=== PATIENT | female | born 1975 | race Caucasian/White ===

== ENCOUNTER 2019-07-08 17:20 | Emergency (ER) | payer OTHER, SELFPAY ==
--- NOTE | ~2019-07-08 | CT_ITS ---
EXAMINATION: CT abdomen pelvis w con DATE: 07/08/2019 19:49 INDICATION: Right lower quadrant abdominal pain. TECHNIQUE: Computed tomography (CT) of the abdomen and pelvis was performed with 100 mL Omnipaque 350 intravenous contrast. Automated exposure control and iterative reconstruction technique were employe d. The dose-length product was 647.53 mGy-cm. COMPARISON: CT abdomen and pelvis 02/01/2017 FINDINGS: The visualized portions of the lung bases demonstrate mild atelectasis. No pleural effusion . The heart size is normal. No pericardial effusion. There is mild pectus excavatum. The liver, gallb ladder, and pancreas are normal. There is a 6 mm cyst in the spleen. The adrenal glands and right kid andrés are normal. There is a 9 mm cyst in left kidney. There is a 2 mm stone in left kidney. There are no dilated loops of bowel. The appendix is normal. There are no pathologically enlarged lymph nodes. There is no free intraperitoneal fluid. There is mild thoracolumbar spondylosis. IMPRESSION: 1. No etiology for the patient's symptoms. Reviewed, dictated and finalized at location A.
[2019-07-08 17:28] VITALS: BP 105/65; PULSE 88; RESP 18; TEMP 37.1; O2SAT 97
[2019-07-08 18:45] LABS: Basophils Absolute Auto 0.1 K/mm3 (0.0-0.1); Basophils Percent Auto 0.4 % (0.2-1.2); Eosinophils Absolute Auto 0.2 K/mm3 (0-0.3); Eosinophils Percent Auto 1.5 % (0-4.4); Hematocrit 45.4 % (37.0-47.0); Hemoglobin 15.9 g/dL (12.0-15.0); Immature Granulocyte Absolute 0.05 K/mm3 (0.00-0.031); Immature Granulocyte Percent A 0.4 % (0-0.5); Lymphocytes Absolute Auto 2.85 K/mm3 (0.9-3.2); Lymphocytes Percent Auto 23.8 % (18.3-44.2); Mean Corpuscular Hemoglobin 31.7 pg (26-34); Mean Corpuscular Volume 90.4 fl (80-100); Mean Platelet Volume 9.9 fl (7.4-10.4); Monocytes Absolute Auto 0.8 K/mm3 (0.1-0.6); Monocytes Percent Auto 6.8 % (2.6-8.5); Neutrophils Percent Auto 67.1 % (45.5-73.1); Platelet Count Result 345 k/mm3 (150-375); Red Blood Count 5.02 M/mm3 (4.2-5.4); Red Cell Distribution Width 12.7 % (11.5-14.5)
[2019-07-08 18:57] LABS: Alanine Aminotransferase 70 U/L (4-35); Albumin Level 4.7 g/dL (3.5-5.1); Alkaline Phosphatase 89 U/L (38-126); Aspartate Amino Transferase 48 U/L (14-36); Bilirubin,Total 0.4 mg/dL (0.2-1.3); Blood Urea Nitrogen 11 mg/dL (7-17); Calcium 9.9 mg/dL (8.4-10.2); Carbon Dioxide 29 mmol/L (22-30); Chloride 103 mmol/L (98-107); Estimated CRCL calculation 98 ml/min; Estimated Glomerular Filt Rate > 60; Glucose 117 mg/dL (65-105); Lipase 97 U/L (23-300); Sodium 138 mmol/L (137-145)
[2019-07-08 19:15] LABS: Add Urine Microscopic? NO; Appearance Urine Clear (Clear); Bilirubin Urine Negative (Negative); Blood Urine Negative (Negative); Color Urine Yellow (Yellow); Glucose Urine UA Negative (Negative); Ketones Urine Negative (Negative); Leukocyte Esterase Ur Negative LEU/UL (Negative); Nitrate Urine Negative (Negative); Protein Urine Negative (Negative); Specific Grav Ur 1.012 (1.001-1.035); Urobilinogen Urine Negative mg/dL (<2.0)
[2019-07-08] MEDS: MORPHINE SULFATE 4 MG/ML INJ IV PUSH (19:26)
[2019-07-08] MEDS: ONDANSETRON INJ 4 MG/2 ML VIAL IV PUSH (19:27)
[2019-07-08] MEDS: SODIUM CHLORIDE 0.9% IV 500 ML 999 ML IV CONT (19:27)
--- NOTE | 2019-07-08 20:57 | ED.GENADULT ---
HPI - General Adult General Chief complaint: Unspecified Stated complaint: abd/ back pain Time Seen by Provider: 07/08/19 18:52 Source: patient Mode of arrival: ambulatory Limitations: no limitations History of Present Illness HPI narrative: Patient presents to the ER for right sided flank pain since this morning. Reports she started having some pain in the right side of her lower abdomen. Reports that resolved and patient then started having some pain in the right side of her mid back. Reports the pain has been constant and is worse with movement and deep breathing. No known injuries. Denies fever, chest pain, shortness of breath, nausea, vomiting, dysuria or hematuria. Related Data Home Medications Medication Instructions Recorded Confirmed estradiol 1 patch TRANSDERMAL 2XW 07/08/19 Allergies Allergy/AdvReac Type Severity Reaction Status Date / Time SERTRALINE HCL Allergy Unknown Unknown Uncoded 07/08/19 17:28 Review of Systems Review of Systems: Narrative: CONSTITUTIONAL: Denies fever CARDIOVASCULAR: Denies chest pain RESPIRATORY: Denies dyspnea. GASTROINTESTINAL: Reports abdominal pain. Denies nausea, vomiting, or diarrhea. GENITOURINARY: Denies dysuria or hematuria. MUSCULOSKELETAL: Reports back pain, and myalgia. NEUROLOGIC: Denies numbness, or weakness. All systems reviewed & are unremarkable except as noted in HPI and below PMFSH Past Medical History Medical History (Updated 07/08/19 @ 21:10 by Nhung Farnsworth PA-C) History of migraine Surgical History Surgical History (Updated 07/08/19 @ 21:05 by Nhung Farnsworth PA-C) History of hysterectomy Social History Social History Gender identity (if verbalized by the patient): Female Exam Narrative: Exam Narrative: GENERAL: Well-appearing, well-nourished, and in no acute distress. HEAD: Normocephalic, atraumatic. EYES: EOMI. CHEST: Clear to auscultation. No respiratory distress. No wheezes rales or rhonchi HEART: Regular rate and rhythm. No murmur heard. Normal peripheral pulses. ABDOMEN: Soft, nondistended, normal active bowel sounds. Mild tenderness to palpation in the RLQ, without guarding. BACK: Tender to palpation of the right thoracic paraspinal musculature EXTREMITIES: Normal range of motion. No edema. SKIN: Warm, dry, no rash. NEURO: No focal deficits. Alert and oriented x3. PSYCH: Normal mood and affect Course Vital Signs Vital signs: Vital Signs Temperature 98.8 F 07/08/19 17:28 Pulse Rate 88 07/08/19 17:28 Respiratory Rate 18 07/08/19 17:28 Blood Pressure 105/65 07/08/19 17:28 Pulse Oximetry 97 07/08/19 17:28 Temperature 98.8 F 07/08/19 17:28 Pulse Rate 88 07/08/19 17:28 Respiratory Rate 18 07/08/19 17:28 Blood Pressure 105/65 07/08/19 17:28 Pulse Oximetry 97 07/08/19 17:28 Medical Decision Making MDM Narrative Medical decision making narrative: Patient presents to the emergency department for right-sided abdominal pain and right-sided back pain. She is afebrile and nontoxic-appearing. No known injuries or trauma. Vitals are normal. CBC with mild leukocytosis to 12. Also shows hemoconcentration. Metabolic panel with mild transaminitis, otherwise no acute changes. UA is normal. CT abdomen pelvis is without acute abnormalities. Patient was updated on case findings. Suspect back pain is more musculoskeletal in origin. Reviewing old records patient has been here multiple times for abdominal pain which seems to be chronic in nature. Patient is stable and felt appropriate for further outpatient evaluation. She is to follow-up with her primary care doctor. She was given warnings to return to the ER Vital Signs Vital Signs: Vital Signs Temperature 98.8 F 07/08/19 17:28 Pulse Rate 88 07/08/19 17:28 Respiratory Rate 18 07/08/19 17:28 Blood Pressure 105/65 07/08/19 17:28 Pulse Oximetry 97 07/08/19 17:28 Temperature 98.8 F 07/08/19 17:28 Pulse Rate 88 02
== END 2019-07-08 21:14 | disposition home or self-care (01) ==
PROVIDERS: General Practice; Emergency Provider Emergency Medicine; PCP Internal Medicine Geriatric Medicine
DX: R10.9 Unspecified abdominal pain (principal); M54.6 Pain in thoracic spine
CPT/HCPCS: 36415; 74177; 80053; 81003; 83690; 85025; 96374; 96375; 99284; J0131; J2270; J2405; J7040; Q9967

== ENCOUNTER 2022-01-24 11:24 | Emergency (ER) | payer OTHER, SELFPAY ==
--- NOTE | ~2022-01-24 | XR_ITS ---
EXAMINATION: XR knee RT min 4V DATE: 01/24/2022 12:18 INDICATION: Anterior right knee pain and swelling post fall TECHNIQUE: Anteroposterior, 2 oblique and crosstable lateral views of the right knee were obtained COMPARISON: None. FINDINGS: Alignment is normal. No fracture. No joint effusion/layering lipohemarthrosis. Mild prepatellar soft tissue swelling. IMPRESSION: 1. No right knee joint effusion or osseous abnormality. Reviewed, dictated and finalized at location A. [facility]
[2022-01-24 11:27] VITALS: BP 114/65; PULSE 68; RESP 16; TEMP 36.8; O2SAT 98
--- NOTE | 2022-01-24 12:41 | ED.GENADULT ---
HPI - General Adult General Chief complaint: Extremity Injury, Lower Stated complaint: fall/knee injury Time Seen by Provider: 01/24/22 11:54 History of Present Illness HPI narrative: 46-year-old female presenting to the emergency department for evaluation of right knee pain. Patient states she was at work when she fell landed on both knees. Patient does have an abrasion to her left knee but is complaining of increased pain at her right knee. Pain states the pain is constant but is also worse with ambulation. Patient denies any other pain or injury. Related Data Home Medications Medication Instructions Recorded Confirmed estradiol 0.1 mg/24 hr semiweekly 1 patch transdermal 2XW 07/08/19 transdermal patch Allergies Allergy/AdvReac Type Severity Reaction Status Date / Time SERTRALINE HCL Allergy Unknown Unknown Uncoded 01/24/22 11:28 Review of Systems Review of Systems: CONSTITUTIONAL: Denies fever, chills, or sweats. EYES: Denies visual changes, redness, or discharge. ENT: Denies rhinorrhea, congestion, sore throat, or otalgia. CARDIOVASCULAR: Denies chest pain, palpitations, or edema. RESPIRATORY: Denies cough or dyspnea. GASTROINTESTINAL: Denies abdominal pain, nausea, vomiting, or diarrhea. GENITOURINARY: Denies dysuria or hematuria. SKIN: Denies rash or itching. MUSCULOSKELETAL: See HPI NEUROLOGIC: Denies headache, numbness, or weakness. [facility] Past Medical History Medical History (Updated 01/24/22 @ 13:04 by Gerber Herrera MD) History of migraine Surgical History Surgical History (Updated 07/08/19 @ 21:05 by Nhung Farnsworth PA-C) History of hysterectomy Social History Social History Gender identity (if verbalized by the patient): Female Exam Narrative: APPEARANCE: Well appearing, no pain, no distress, well-nourished. HEAD: normocephalic, atraumatic. EYES: PERRLA/EOMI, conjunctivae clear. NOSE: Normal no drainage NECK: Supple. No adenopathy, no masses. RESPIRATORY: Airway patent, respirations nonlabored. Clear to auscultation bilaterally, no rales, rhonchi, wheezing. CARDIOVASCULAR: Regular rate and rhythm without murmurs rubs or gallops. ABDOMINAL: Soft, nontender, nondistended, normal bowel sounds MUSCULOSKELETAL: Moves all extremities. Ecchymosis and edema on the right lateral aspect of the right knee. Patient does have some right-sided tenderness to palpation. Strong flexion and extension of the lower leg. NEURO: Alert. Cranial nerves II through XII intact. Grossly intact SKIN: Warm, dry. Normal Color Course Course Emergency Course: Patient's knee has no acute fracture or dislocation. X-rays were negative. Patient was placed in a knee immobilizer and offered crutches for limited weightbearing. Patient was encouraged of close follow-up with her primary care physician. All question concerns were addressed. Vital Signs Vital signs: Vital Signs Temperature 98.2 F 01/24/22 11:27 Pulse Rate 68 01/24/22 11:27 Respiratory Rate 16 01/24/22 11:27 Blood Pressure 114/65 01/24/22 11:27 Pulse Oximetry 98 01/24/22 11:27 Temperature 98.2 F 01/24/22 11:27 Pulse Rate 68 01/24/22 11:27 Respiratory Rate 16 01/24/22 11:27 Blood Pressure 114/65 01/24/22 11:27 Pulse Oximetry 98 01/24/22 11:27 Medical Decision Making Vital Signs Vital Signs: Vital Signs Temperature 98.2 F 01/24/22 11:27 Pulse Rate 68 01/24/22 11:27 Respiratory Rate 16 01/24/22 11:27 Blood Pressure 114/65 01/24/22 11:27 Pulse Oximetry 98 01/24/22 11:27 Temperature 98.2 F 01/24/22 11:27 Pulse Rate 68 01/24/22 11:27 Respiratory Rate 16 01/24/22 11:27 Blood Pressure 114/65 01/24/22 11:27 Pulse Oximetry 98 01/24/22 11:27 Imaging Data Radiologist's impression: Impressions Knee X-Ray 01/24/22 12:51 IMPRESSION: 1. No right knee joint effusion or osseous abnormality. Discharge Plan Discharge Clinical Impression
== END 2022-01-24 14:04 | disposition home or self-care (01) ==
PROVIDERS: Emergency Provider Emergency Medicine; PCP Internal Medicine Geriatric Medicine
DX: S80.01XA Contusion of right knee, initial encounter (principal); Z90.710 Acquired absence of both cervix and uterus; W19.XXXA Unspecified fall, initial encounter
CPT/HCPCS: 73564; 99283

== ENCOUNTER 2022-06-19 13:53 | Emergency (ER) | payer OTHER, SELFPAY ==
--- NOTE | 2022-06-19 13:59 | ED.WOUNDLAC ---
HPI - Wound/Laceration General Chief Complaint: Wound/Laceration Stated Complaint: PW L FOOT Time Seen by Provider: 06/19/22 14:00 Source: patient, RN notes reviewed and old records reviewed Mode of arrival: ambulatory Limitations: no limitations History of Present Illness HPI narrative: patient presents to with a puncture wound to the left dorsal foot that occurred about 3 days ago. Since noticed some redness and swelling and needing her tetanus shot updated. States that she got a nail in the dorsal foot. Onset (ago): day(s) (3) Patient tetanus UTD: No Related Data Home Medications Medication Instructions Recorded Confirmed estradiol 0.1 mg/24 hr semiweekly 1 patch transdermal 2XW 07/08/19 06/19/22 transdermal patch Allergies Allergy/AdvReac Type Severity Reaction Status Date / Time SERTRALINE HCL Allergy Unknown Unknown Uncoded 06/19/22 14:07 Review of Systems Review of Systems: All systems reviewed & are unremarkable except as noted in HPI and below Constitutional: Constitutional: Reports no additional constitutional complaints Eyes: Eyes: Reports no additional eye complaints ENT: Reports system reviewed and no additional complaints, except as documented Cardiovascular: Cardiovascular: Reports no additional cardiovascular complaints, Denies chest pain and Denies dyspnea Respiratory: Respiratory: Reports no additional respiratory complaints, Denies chest congestion, Denies cough and Denies dyspnea Gastrointestinal: Gastrointestinal: Reports no additional gastrointestinal complaints, Denies abdominal pain, Denies nausea and Denies vomiting Musculoskeletal: Musculoskeletal: Reports as per HPI Integumentary/Breasts: Skin/Breast: Reports as per HPI Neurologic: Reports system reviewed and no additional complaints, except as documented Psychiatric: Psychiatric: Reports no additional psychiatric complaints Allergic/Immunologic: Allergic/Immunologic: Reports no additional allergic/immunologic complaints [facility] Past Medical History Medical History History of migraine Surgical History Surgical History History of hysterectomy Social History Social History Gender identity (if verbalized by the patient): Female Comments At the time of my signature, I reviewed and agree with the nursing past medical, surgical, social, and family history. There is no relevant family history pertinent to the patient complaint. Exam Const: General: cooperative, healthy appearing, comfortable, no acute distress, well developed, alert and well nourished Nutritional Appearance: well nourished Orientation/consciousness: patient oriented x3 Limitations: no limitations HENMT: Head: normal to inspection Ears: hearing grossly normal bilaterally and external ears normal Face/Nose/Sinus: Normal external nose present, Normal nares present, Normal nasal mucous membranes and turbinates present and normal facial exam Face and sinus: normal facial exam Eyes: General: appearance normal, both eyes and all related structures Alignment and Position: alignment normal Periorbital: periorbital findings normal Conjunctivae: conjunctivae normal Pupils: Equal, round and reactive pupils present EOM: EOMs intact bilaterally Neck: Neck: normal visual inspection, full ROM, no lymphadenopathy and no meningeal signs Chest: Chest palpation & inspection: normal inspection of the chest Resp: Effort & Inspection: normal respiratory effort and able to speak in complete sentences Auscultation: clear to auscultation bilaterally, no crackles, no rales, no rhonchi and no wheezes Cardio: Rate: regular rate Rhythm: regular rhythm Back/Spine/Pelvis: Cervical Spine: cervical ROM normal Thoracic/Lumbar Spine: No thoracic spinal tenderness Skin: General skin exam: normal color and no rash
[2022-06-19 14:13] VITALS: BP 141/79; PULSE 67; RESP 16; TEMP 36.9; O2SAT 99
[2022-06-19] MEDS: TETANUS,DIPHTHERIA,AC PERTUSSIS ADULT (0.5 ML) BOOSTRIX IM (14:21)
== END 2022-06-19 14:40 | disposition home or self-care (01) ==
PROVIDERS: Emergency Provider Nurse Practitioner; PCP Internal Medicine Geriatric Medicine
DX: S91.332A Puncture wound without foreign body, left foot, initial encounter (principal); Z23 Encounter for immunization; W45.8XXA Other foreign body or object entering through skin, initial encounter
CPT/HCPCS: 90471; 90715; 99213; G0463

== ENCOUNTER 2023-09-23 10:00 | Emergency (ER) | payer BC, SELFPAY ==
[2023-09-23 10:10] VITALS: BP 109/62; PULSE 74; RESP 16; O2SAT 100
--- NOTE | 2023-09-23 10:16 | ED.URI ---
HPI - URI/Sore Throat General Stated Complaint: Sore Throat Time Seen by Provider: 09/23/23 10:17 Source: patient Mode of arrival: ambulatory Limitations: no limitations History of Present Illness HPI Narrative: Bibi is a 47-year-old female patient presenting to the clinic today with complaints of sore throat and difficulty swallowing x 2 days. She reports she received her first psoriasis injection four days ago and went to the dentist to have a routine cleaning three days ago. She has not been prescribed any antibiotics recently. She denies associated shortness of breath, chest pain, fevers/chills, or cough. MD elicited complaint: sore throat and nasal congestion Related Data Home Medications Medication Instructions Recorded Confirmed estradiol 0.1 mg/24 hr semiweekly 1 patch transdermal 2XW 07/08/19 06/19/22 transdermal patch Allergies Allergy/AdvReac Type Severity Reaction Status Date / Time SERTRALINE HCL Allergy Unknown Unknown Uncoded 06/19/22 14:07 Review of Systems Review of Systems: Pertinent positives per HPI. Patient denies any fever, chills, rash, headache, visual changes, dizziness, cough, runny nose, shortness of breath, chest pain, palpitations, nausea, vomiting, diarrhea, constipation, abdominal pain, or any urinary issues. PMFSH Past Medical History Medical History History of migraine Surgical History Surgical History History of hysterectomy Social History Social History Gender identity (if verbalized by the patient): Female Comments At the time of my signature, I reviewed and agree with the nursing past medical, surgical, social, and family history. There is no relevant family history pertinent to the patient complaint. Exam Narrative: General: Well-developed, well nourished, in no apparent distress Head: Normocephalic, atraumatic Eyes: Pupils equally round, EOM intact, sclera and conjunctive clear, no discharge, lids normal Ears: Hearing normal. Nose: Nares patent Mouth: Oral pharynx erythematous with lesions, good dentition, MMM. Neck: Supple, trachea midline Cardio: Regular rate and rhythm, s1 and s2 normal, no murmur appreciated. Resp: Clear to auscultation bilaterally, no rhonchi, rales, wheezing or rubs Course Course Emergency Course: Portions of this record may have been created with voice recognition software. Level of Care: Express Care Visit Vital Signs Vital signs: Vital signs reviewed MDM - URI/Sore Throat MDM Narrative Medical decision making narrative: At the time of visit patient is resting comfortably on the exam table. Patient appears to be nontoxic. Plan: I suspect patient has oral thrush. Prescription for nystatin swish and swallow and viscous lidocaine was sent to the pharmacy. Supportive measures were discussed with the patient and they voiced understanding discharge instructions and agrees to treatment plan. Return precautions reviewed Differential Diagnosis Differential diagnosis: Likely upper respiratory infection, sinusitis, viral infection, influenza (COVID, oral thrush), pharyngitis and other (COVID) Discharge Plan Discharge Clinical Impression: Oral thrush Patient Disposition: Home, Self-Care Condition: Stable Instructions: Antibiotic Form, Oral Candidiasis (ED) Additional Instructions: Take viscous lidocaine and nystatin swish and swallow as directed Increase fluids and stay well hydrated May take Tylenol/Motrin as needed for pain If you develop dehydration/difficulty swallowing recommend going to the emergency room for further evaluation Follow-up with your primary care provider in 3-5 days if symptoms persist Prescriptions: New nystatin 100,000 unit/mL suspension 5 ml PO QID 14 Days Qty: 280 0RF Rx Instructions
== END 2023-09-23 10:37 | disposition home or self-care (01) ==
PROVIDERS: Emergency Provider Nurse Practitioner Family
DX: B37.0 Candidal stomatitis (principal)
CPT/HCPCS: 99213; G0463

== ENCOUNTER 2023-09-24 20:10 | Emergency (ER) | payer BC, SELFPAY ==
[2023-09-24 20:22] VITALS: BP 134/77; PULSE 61; RESP 20; TEMP 36.5; O2SAT 100
--- NOTE | 2023-09-24 22:49 | ED.DENTAL ---
HPI - Dental/Oral General Chief complaint: Dental/Oral Stated complaint: thrush, sob Time Seen by Provider: 09/24/23 21:56 Source: patient Mode of arrival: ambulatory Limitations: no limitations History of Present Illness HPI Narrative: This is a 47 year old female that presents to the ER for sore throat. Reports she was diagnosed with thrush 2 days ago. Started on Nystatin. She is not tolerating the Nystatin. It is making her vomit. She has worsening pain. Reports recently being started on a new Psoriasis injection. Denies fevers. Related Data Home Medications Medication Instructions Recorded Confirmed estradiol 0.1 mg/24 hr semiweekly 1 patch transdermal 2XW 07/08/19 09/23/23 transdermal patch Allergies Allergy/AdvReac Type Severity Reaction Status Date / Time SERTRALINE HCL Allergy Unknown Unknown Uncoded 09/23/23 12:27 Review of Systems Review of Systems: CONSTITUTIONAL: Denies fever ENT: Reports sore throat All systems reviewed & are unremarkable except as noted in HPI and below PMFSH Past Medical History Medical History (Updated 09/24/23 @ 22:54 by Nhung Farnsworth PA-C) History of migraine History of psoriasis Surgical History Surgical History History of hysterectomy Social History Social History (Updated 09/24/23 @ 22:54 by Nhung Farnsworth PA-C) Substance use: never Gender identity (if verbalized by the patient): Female Exam Narrative: GENERAL: Well-appearing, well-nourished, and in no acute distress. HEAD: Normocephalic, atraumatic. EYES: EOMI. ENT: Mucous membranes moist. Oropharynx with erythema with exudates present NECK: Supple. CHEST: Clear to auscultation. No respiratory distress. No wheezes rales or rhonchi HEART: Regular rate and rhythm. No murmur heard. Normal peripheral pulses. EXTREMITIES: Normal range of motion. No edema. SKIN: Warm, dry, no rash. NEURO: No focal deficits. Alert and oriented x3. PSYCH: Normal mood and affect Course Course Emergency Course: Patient agrees with plan of care Vital Signs Vital signs: Vital Signs Temperature 97.7 F 09/24/23 20:22 Pulse Rate 61 09/24/23 20:22 Respiratory Rate 20 09/24/23 20:22 Blood Pressure 134/77 09/24/23 20:22 Pulse Oximetry 100 09/24/23 20:22 Oxygen Delivery Room Air 09/24/23 20:22 Temperature 97.7 F 09/24/23 20:22 Pulse Rate 61 09/24/23 20:22 Respiratory Rate 20 09/24/23 20:22 Blood Pressure 134/77 09/24/23 20:22 Pulse Oximetry 100 09/24/23 20:22 Oxygen Delivery Room Air 09/24/23 20:22 MDM - Dental/Oral MDM Narrative Medical decision making narrative: Patient presents to the emergency department for worsening symptoms after recently being diagnosed with thrush. She is not tolerating Nystatin. Will change her to Fluconazole. She was instructed to have follow up with PCP. She was given warnings to return to the ER Differential Diagnosis Differential diagnosis: Likely other (thrush, pharyngitis) Critical Care Time Critical Care Time Critical Care Time: No Discharge Plan Discharge Clinical Impression: Thrush Patient Disposition: Home, Self-Care Condition: Stable Instructions: Oral Candidiasis (ED) Additional Instructions: Return to the ER if you experience fever, you are unable to keep down liquids or solids, or any other symptoms that are concerning to you Take fluconazole as prescribed. Take Pepcid daily Follow up with your primary care doctor Prescriptions: New fluconazole 100 mg tablet 100 mg PO DAILY 10 Days Qty: 11 0RF Rx Instructions: First dose of 200mg, then 100mg daily thereafter No Action nystatin 100,000 unit/mL suspension 5 ml PO QID 14 Days Qty: 280 0RF Rx Instructions: administer 1/2 of dose in each side of the mouth, swish and swallow lidocaine HCl [Lidocaine Viscous] 2 % solution 1 applic mucous membrane QID PRN (Gavi
[2023-09-24 23:25] VITALS: BP 157/62; PULSE 101; RESP 18; TEMP 37.1
== END 2023-09-24 23:27 | disposition home or self-care (01) ==
PROVIDERS: Emergency Provider Physician Assistant
DX: B37.9 Candidiasis, unspecified (principal); L40.9 Psoriasis, unspecified; Z90.710 Acquired absence of both cervix and uterus
CPT/HCPCS: 99283